=== PATIENT | male | born 1950 | race Caucasian/White ===

== ENCOUNTER 2020-09-24 10:05 | Outpatient (REF) | payer OTHER, SELFPAY ==
[2020-09-24 11:23] LABS: MANUAL DIFF FLAG NO
[2020-09-24 11:37] LABS: Basophils Percent Auto 0.2 % (0-2); Hematocrit 40.7 % (42-52); Hemoglobin 13.4 g/dl (14.0-18.0); Imm Gran Abs Auto 0.01 X10*3/uL (0.00-0.03); Imm Gran Pct Auto 0.2 % (0.0-0.4); Lymphocytes Absolute Auto 1.2 X10*3/uL (1.2-4.9); Lymphocytes Percent Auto 29.2 % (20-40); Mean Corpuscular HGB Conc 32.9 g/dl (31.0-36.0); Mean Corpuscular Hemoglobin 29.8 pg (27.0-33.0); Mean Corpuscular Volume 90.6 fL (80-98); Mean Platelet Volume 9.6 fL (9.4-12.4); Monocytes Absolute Auto 0.4 X10*3/uL (0.1-1.2); Monocytes Percent Auto 9.2 % (2-11); Neutrophils Absolute Auto 2.5 X10*3/uL (2.0-8.3); Neutrophils Percent Auto 60.2 % (45-73); Platelet Count 196 X10*3/uL (160-400); Red Blood Count 4.49 X10*6/uL (4.60-5.80); Red Cell Distribution Width 12.8 % (11.0-16.0); White Blood Count 4.1 X10*3/uL (4.8-10.8)
[2020-09-24 12:22] LABS: Alanine Aminotransferase 12 U/L (0-40); Albumin Level 4.1 g/dL (3.5-5.0); Alkaline Phosphatase 64 U/L (39-117); Anion Gap 12 (12-20); Aspartate Amino Transferase 19 U/L (5-37); Bilirubin Total 1.2 mg/dL (0.0-1.0); Blood Urea Nitrogen 17 mg/dL (9-16); Calcium 8.4 mg/dL (8.4-10.2); Carbon Dioxide 25 mmol/L (22-29); Chloride 111 mmol/L (96-108); Cholesterol 187 mg/dL; Estimated Glomerular Filt Rate 51; Glucose Fasting 79 mg/dL (60-99); HDL Cholesterol 59 mg/dL; LDL Cholesterol Calculated 115 mg/dl; Potassium 4.4 mmol/L (3.3-5.1); Sodium 144 mmol/L (135-145); Total Protein 6.5 g/dL (6.5-8.0); Triglycerides 67 mg/dL
== END 2020-09-24 10:06 | disposition home or self-care (01) ==
LOC: HO.LAB 10:05
PROVIDERS: PCP Internal Medicine; Visit Provider Internal Medicine
DX: Z00.00 Encounter for general adult medical examination without abnormal findings (principal); E11.9 Type 2 diabetes mellitus without complications
CPT/HCPCS: 36415; 80053; 80061; 85025

== ENCOUNTER 2020-09-30 11:15 | Outpatient (REF) | payer OTHER, SELFPAY ==
--- NOTE | ~2020-09-30 | XR_ITS ---
EXAMINATION: XR LUMBOSACRAL SPINE CLINICAL INFORMATION: Pain COMPARISON: Previous x-ray November 2006 TECHNIQUE: Three views of the lumbosacral spine. FINDINGS: Bone alignment is normal. No fracture or dislocation is seen. There is multilevel degenerative spondylosis. There is degenerative disc disease at L4-L5 and L5-S1. There is lower lumbar spine facet arthritis. XR/XR lumbar spine 2-3V IMPRESSION: Degenerative changes.
== END 2020-09-30 11:16 | disposition home or self-care (01) ==
LOC: HO.LAB 11:15
PROVIDERS: PCP Internal Medicine; Visit Provider Internal Medicine
DX: M54.9 Dorsalgia, unspecified (principal)
CPT/HCPCS: 72100

== ENCOUNTER 2021-04-04 11:03 | Outpatient (REF) | payer OTHER, SELFPAY ==
[2021-04-04 11:14] LABS: MANUAL DIFF FLAG NO
[2021-04-04 11:59] LABS: Basophils Percent Auto 0.4 % (0-2); Eosinophils Percent Auto 0.4 % (0-4); Hematocrit 40.6 % (42-52); Hemoglobin 13.8 g/dl (14.0-18.0); Imm Gran Abs Auto 0.01 X10*3/uL (0.00-0.03); Imm Gran Pct Auto 0.2 % (0.0-0.4); Lymphocytes Absolute Auto 1.3 X10*3/uL (1.2-4.9); Lymphocytes Percent Auto 23.2 % (20-40); Mean Corpuscular Hemoglobin 30.7 pg (27.0-33.0); Mean Corpuscular Volume 90.4 fL (80-98); Mean Platelet Volume 9.2 fL (9.4-12.4); Monocytes Absolute Auto 0.5 X10*3/uL (0.1-1.2); Monocytes Percent Auto 9.7 % (2-11); Neutrophils Absolute Auto 3.6 X10*3/uL (2.0-8.3); Neutrophils Percent Auto 66.1 % (45-73); Platelet Count 227 X10*3/uL (160-400); Red Blood Count 4.49 X10*6/uL (4.60-5.80); Red Cell Distribution Width 12.6 % (11.0-16.0); White Blood Count 5.4 X10*3/uL (4.8-10.8)
[2021-04-04 12:19] LABS: Appearance Urine CLEAR; Color Urine YELLOW; Glucose Urine UA NEG (NEG); Leukocyte Esterase Urine NEG (NEG); Nitrite Urine NEG (NEG); Specific Gravity - Urine >= 1.030 (1.005-1.025); Urine Blood NEG (NEG); Urine Ketones 5 MG/DL (NEG); Urine Protein TRACE MG/DL (NEG-TRACE)
[2021-04-04 12:28] LABS: Alanine Aminotransferase 9 U/L (0-40); Albumin Level 4.3 g/dL (3.5-5.0); Alkaline Phosphatase 63 U/L (39-117); Anion Gap 12 (12-20); Aspartate Amino Transferase 19 U/L (5-37); Blood Urea Nitrogen 16 mg/dL (9-16); Calcium 8.9 mg/dL (8.4-10.2); Carbon Dioxide 27 mmol/L (22-29); Chloride 107 mmol/L (96-108); Cholesterol 185 mg/dL; Estimated Glomerular Filt Rate 44; Glucose Fasting 86 mg/dL (60-99); HDL Cholesterol 62 mg/dL; LDL Cholesterol Calculated 113 mg/dl; Potassium 5.1 mmol/L (3.3-5.1); Sodium 141 mmol/L (135-145); Total Protein 6.7 g/dL (6.5-8.0); Triglycerides 52 mg/dL
[2021-04-04 12:52] LABS: Prostate Specific Antigen Scr 1.53 ng/mL (<0.05-4.0)
== END 2021-04-04 11:04 | disposition home or self-care (01) ==
LOC: HO.LAB 11:03
PROVIDERS: PCP Internal Medicine; Visit Provider Internal Medicine
DX: Z00.00 Encounter for general adult medical examination without abnormal findings (principal); Z12.5 Encounter for screening for malignant neoplasm of prostate; R35.1 Nocturia; E11.9 Type 2 diabetes mellitus without complications; N39.0 Urinary tract infection, site not specified
CPT/HCPCS: 36415; 80053; 80061; 81003; 84153; 85025

== ENCOUNTER 2021-11-07 11:43 | Outpatient (REF) | payer OTHER, SELFPAY ==
[2021-11-07 13:59] LABS: Prostate Specific Antigen Scr 1.37 ng/mL (<0.05-4.0)
== END 2021-11-07 11:44 | disposition home or self-care (01) ==
LOC: HO.LAB 11:43
PROVIDERS: PCP Internal Medicine; Visit Provider Internal Medicine
DX: Z12.5 Encounter for screening for malignant neoplasm of prostate (principal)
CPT/HCPCS: 36415; 84153

== ENCOUNTER 2023-02-09 10:30 | Outpatient (AMB) | payer OTHER, SELFPAY ==
[2023-02-09 10:32] VITALS: BP 120/90; PULSE 64; O2SAT 98; BMI 25.7
--- NOTE | 2023-02-09 10:32 | A.OFFPC_ITS ---
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 Accompanied by: Self / Same As Patient Allergies No Known Allergies Allergy (Verified 02/09/23 10:33) Medication List - Last Reconciled 02/09/23 by Foster Escobar MD lisinopril 20 mg PO DAILY omeprazole 40 mg PO QAM Tobacco use date assessed: 10/07/22 Fall risk assessment: No Falls in past year Last assessed Fall Risk: 02/09/23 Dental Screening Dental Screen Date: 02/09/23 Did you have a dental visit in the last 12 months?: Yes Did you have a dental problem in the last 6 months where you did not have access to dental care?: No Was dental information given to patient?: Patient has dentist HPI 4 month f/u HPI Details HTN on Rx; doing well; compliant [facility] Medical History Hypertension Surgical History History of cholecystectomy Family History Father Cancer Mother Past heart attack Social History Housing: House Alcohol intake: current Alcohol intake frequency: holidays/special occasions only Patient Tobacco Use Status: Former Tobacco user Tobacco use type: Cigarette e-Cigarette/Vaping Use: Never Used Second Hand Smoke Exposure: No service: No Current occupational status: employed Cognitive needs: No Hearing needs: No Vision needs: Yes (glasses) Questionnaire PHQ-9 Over the last 2 weeks, how often have you been bothered by any of the following problems? 1. Little interest or pleasure in doing things: not at all 2. Feeling down, depressed, or hopeless: not at all 3. Trouble falling or staying asleep, or sleeping too much: not at all 4. Feeling tired or having little energy: not at all 5. Poor appetite or overeating: not at all 6. Feeling bad about yourself - or that you are a failure or have let yourself or your family down: not at all 7. Trouble concentrating on things, such as reading the newspaper or watching television: not at all 8. Moving or speaking so slowly that other people could have noticed. Or the opposite - being so fidgety or restless that you have been moving around a lot more than usual: not at all 9. Thoughts that you would be better off or of hurting yourself in some way: not at all Total score: 0 Depression Screening Interpretation: Negative Source: Developed by Drs. Jonny Goldstein, Ines Baez, Aime Gay and colleagues, with an educational ariel from [employer]. Thrive Questionnaire Date Thrive assessed: 07/10/22 Currently or been in a relationship where the following occur: no concerns reported AUDIT C Alcohol Use Questionnaire (AUDIT-C) 1. How often do you have a drink containing alcohol?: Monthly or less 2. How many drinks containing alcohol do you have on a typical day when you are drinking?: 1 or 2 3. How often do you have six or more drinks on one occasion?: Never Total Score: 1 Score Reviewed/Action Taken: Yes ZAIDA-7 AMB Questionnaire ZAIDA-7 Date ZAIDA - 7 assessed: 02/09/23 Feeling nervous, anxious, or on edge: 0 = Not at all Not being able to stop or control worryin = Not at all Worrying too much about different things: 0 = Not at all Trouble relaxin = Not at all Being so restless that it is hard to sit still: 0 = Not at all Becoming easily annoyed or irritable: 0 = Not at all Feeling afraid as if something awful might happen: 0 = Not at all Total ZAIDA-7 score (0-4 normal; 5-9 mild; 10-14 moderate; 15-21 severe): 0 Source: Developed by Drs. Jonny Goldstein, Ines Baez, Aime Gay and colleagues, with an educational ariel from [employer]. Review of Systems Const Denies chills, Denies headache(s) and Denies weight loss ENT Denies headache(s) Card Denies chest pain, Denies syncope, Denies irregular heart rhythm and Denies dy spnea Resp Denies chest congestion, Denies cough and Denies dyspnea GI Denies abdominal pain, Denies change in stool character, Denies nausea and Guille es vomiting Musc Denies deformity and Denies joint swelling Neuro Denies syncope and Denies headache(s) Physical exam (Primary Care) Vital Signs: Last Vital Signs Pulse 64 02/09/23 10:32 BP 120/90 H 02/09/23 10:32 Pulse Ox 98 02/09/23 10:32 Oxygen Delivery Method Room Air 02/09/23 10:32 BMI result Body Mass Index 25.7 Tobacco/Smoking Status: Tobacco use Status Tobacco use date assessed 10/07/22 02/09/23 10:37 Patient Tobacco Use Status Former Tobacco user 02/09/23 10:37 Tobacco use type Cigarette 02/09/23 10:37 e-Cigarette/Vaping Use Never Used 02/09/23 10:37 PHQ-9: PHQ-9 Score PHQ-9: Total score 0 02/09/23 10:37 Depression Screening Interpretation: Negative Thrive Assessment: Date of Thrive Assessment Date Thrive assessed 07/10/22 02/09/23 10:37 Currently or been in a relationship where the following occur: no concerns reported Const General: cooperative, healthy appearing and comfortable Resp Auscultation: clear to auscultation bilaterally Cardio Jugular venous distension: no JVD Rate: regular rate Rhythm: regular rhythm GI Inspection: Yes normal to inspection Assessment and Plan Assessment & Plan (1) Hypertension: Code(s): I10 - Essential (primary) hypertension Plan: stable; same rx; do labs Coding Level of Care Code Est Pt Level 3 (61781) Diagnoses Hypertension I10 Additional Codes PHQ-9 - 27797 - PHQ-9 Billing: Y ([id number])
== END 2023-02-09 10:47 | disposition home or self-care (01) ==
PROVIDERS: PCP Internal Medicine; Visit Provider Internal Medicine
DX: I10 Essential (primary) hypertension (principal)
CPT/HCPCS: 99213

== ENCOUNTER 2023-04-07 09:00 | Outpatient (REF) | payer OTHER, SELFPAY ==
[2023-04-07 09:11] LABS: MANUAL DIFF FLAG NO
[2023-04-07 09:34] LABS: Basophils Percent Auto 0.7 % (0-2); Hematocrit 42.9 % (42.0-52.0); Hemoglobin 14.4 g/dl (14.0-18.0); Imm Gran Abs Auto 0.01 X10*3/uL (0.00-0.03); Imm Gran Pct Auto 0.2 % (0.0-0.4); Lymphocytes Absolute Auto 1.1 X10*3/uL (1.2-4.9); Lymphocytes Percent Auto 27.5 % (20-40); Mean Corpuscular HGB Conc 33.6 g/dl (31.0-36.0); Mean Corpuscular Hemoglobin 30.5 pg (27.0-33.0); Mean Corpuscular Volume 90.9 fL (80.0-98.0); Mean Platelet Volume 9.3 fL (9.4-12.4); Monocytes Absolute Auto 0.4 X10*3/uL (0.1-1.2); Monocytes Percent Auto 9.2 % (2-11); Neutrophils Absolute Auto 2.5 x10*3/uL (2.0-8.3); Neutrophils Percent Auto 61.4 % (45-73); Platelet Count 212 X10*3/uL (160-400); Red Blood Count 4.72 X10*6/uL (4.60-5.80); Red Cell Distribution Width 12.9 % (11.0-16.0)
[2023-04-07 10:50] LABS: Alanine Aminotransferase 9 U/L (0-40); Albumin Level 4.2 g/dL (3.5-5.0); Alkaline Phosphatase 66 U/L (39-117); Anion Gap 13 (12-20); Aspartate Amino Transferase 19 U/L (5-37); Bilirubin Total 1.1 mg/dL (0.0-1.0); Blood Urea Nitrogen 16 mg/dL (9-16); Calcium 9.1 mg/dL (8.4-10.2); Carbon Dioxide 26 mmol/L (22-29); Chloride 108 mmol/L (96-108); Cholesterol 183 mg/dL (<200); Estimated Glomerular Filt Rate 48; Glucose Fasting 89 mg/dL (60-99); HDL Cholesterol 60 mg/dL (>40); LDL Cholesterol Calculated 110 mg/dL (<100); Potassium 4.4 mmol/L (3.3-5.1); Sodium 143 mmol/L (135-145); Total Protein 6.9 g/dL (6.5-8.0); Triglycerides 68 mg/dL (<150)
== END 2023-04-07 09:01 | disposition home or self-care (01) ==
LOC: HO.LAB 09:00
PROVIDERS: PCP Internal Medicine; Visit Provider Internal Medicine
DX: Z13.0 Encounter for screening for diseases of the blood and blood-forming organs and certain disorders involving the immune mechanism (principal); E78.5 Hyperlipidemia, unspecified; I10 Essential (primary) hypertension
CPT/HCPCS: 36415; 80053; 80061; 85025

== ENCOUNTER 2023-04-09 09:44 | Outpatient (AMB) | payer OTHER, SELFPAY ==
[2023-04-09 09:53] VITALS: BP 146/82; PULSE 75; O2SAT 98; BMI 26.3
--- NOTE | 2023-04-09 09:53 | MHC.PC.OV ---
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 Accompanied by: Self / Same As Patient Allergies No Known Allergies Allergy (Verified 04/09/23 09:53) Medication List - Last Reconciled 04/09/23 by Foster Escobar MD lisinopril 20 mg PO DAILY omeprazole 40 mg PO QAM Tobacco use date assessed: 10/07/22 Fall risk assessment: No Falls in past year Last assessed Fall Risk: 04/09/23 Dental Screening Dental Screen Date: 04/09/23 Did you have a dental visit in the last 12 months?: Yes Did you have a dental problem in the last 6 months where you did not have access to dental care?: No Was dental information given to patient?: Patient has dentist HPI Annual exam HPI Details HTN and gerd on rx; doing well PFSH Medical History Hypertension Surgical History History of cholecystectomy Family History Father Cancer Mother Past heart attack Social History Housing: House Alcohol intake: current Alcohol intake frequency: holidays/special occasions only Patient Tobacco Use Status: Former Tobacco user Tobacco use type: Cigarette e-Cigarette/Vaping Use: Never Used Second Hand Smoke Exposure: No service: No Current occupational status: employed Cognitive needs: No Hearing needs: No Vision needs: Yes (glasses) Questionnaire PHQ-9 Over the last 2 weeks, how often have you been bothered by any of the following problems? 1. Little interest or pleasure in doing things: not at all 2. Feeling down, depressed, or hopeless: not at all 3. Trouble falling or staying asleep, or sleeping too much: not at all 4. Feeling tired or having little energy: not at all 5. Poor appetite or overeating: not at all 6. Feeling bad about yourself - or that you are a failure or have let yourself or your family down: not at all 7. Trouble concentrating on things, such as reading the newspaper or watching television: not at all 8. Moving or speaking so slowly that other people could have noticed. Or the opposite - being so fidgety or restless that you have been moving around a lot more than usual: not at all 9. Thoughts that you would be better off or of hurting yourself in some way: not at all Total score: 0 Depression Screening Interpretation: Negative Depression Screening Done: Yes 16200 - PHQ-9 Billing: Yes Source: Developed by Drs. Jonny Goldstein, Ines Baez, Aime Gay and colleagues, with an educational ariel from [employer]. Thrive Questionnaire Date Thrive assessed: 07/10/22 AUDIT C Alcohol Use Questionnaire (AUDIT-C) 1. How often do you have a drink containing alcohol?: Monthly or less 2. How many drinks containing alcohol do you have on a typical day when you are drinking?: 1 or 2 3. How often do you have six or more drinks on one occasion?: Never Total Score: 1 Score Reviewed/Action Taken: Yes ZAIDA-7 AMB Questionnaire ZAIDA-7 Date ZAIDA - 7 assessed: 02/09/23 Source: Developed by Drs. Jonny Goldstein, Ines Baez, Aime Gay and colleagues, with an educational ariel from [employer]. Review of Systems Const Denies chills, Denies fatigue, Denies headache(s) and Denies weight loss Eyes Denies change in vision, Denies diplopia and Denies eye pain ENT Denies vertigo, Denies dizziness, Denies headache(s) and Denies nasal discharge Card Denies chest pain, Denies rapid heart rate and Denies dyspnea on exertion Resp Denies chest congestion, Denies cough, Denies pain with cough and Denies dyspnea on exertion GI Denies abdominal pain, Denies hematochezia and Denies change in bowel habits Musc Denies myalgias, Denies arthralgias and Denies joint swelling Skin/Breast Denies lesions and Denies unusual bruising Neuro Denies vertigo, Denies dizziness, Denies headache(s) and Denies focal weakness Endo Denies fatigue Physical exam (Primary Care) Vital Signs: Last Vital Signs Pulse 75 04/09/23 09:53 BP 146/82 H 04/09/23 09:53 Pulse Ox 98 04/09/23 09:53 Oxygen Delivery Method Room Air 04/09/23 09:53 BMI result Body Mass Index 26.3 Tobacco/Smoking Status: Tobacco use Status Tobacco use date assessed 10/07/22 04/09/23 09:54 Patient Tobacco Use Status Former Tobacco user 04/09/23 09:54 Tobacco use type Cigarette 04/09/23 09:54 e-Cigarette/Vaping Use Never Used 04/09/23 09:54 PHQ-9: PHQ-9 Score PHQ-9: Total score 0 04/09/23 09:54 Depression Screening Interpretation: Negative Thrive Assessment: Date of Thrive Assessment Date Thrive assessed 07/10/22 04/09/23 09:54 Const General: cooperative, healthy appearing and no acute distress Orientation/consciousness: oriented to person, oriented to place and oriented to time HENMT Head: Yes normal to inspection, Yes normocephalic and Yes atraumatic Mouth: Normal oral and palatal mucosa present and tongue normal Throat: Yes posterior oropharynx normal and Yes uvula midline Eyes General: appearance normal, both eyes and all related structures Neck Neck: Yes normal visual inspection, Yes full ROM and Yes no lymphadenopathy Thyroid: Thyroid normal Carotids: normal carotid upstroke Chest Chest palpation & inspection: normal inspection of the chest Resp Effort & Inspection: normal respiratory effort and able to speak in complete sentences Auscultation: clear to auscultation bilaterally Cardio Jugular venous distension: no JVD Palpation: normal PMI Rate: regular rate Rhythm: regular rhythm Heart sounds: S1 normal heart sound present and S2 normal heart sound present GI Inspection: Yes normal to inspection Palpation (GI): Soft to palpation and No hepatosplenomegaly present Auscultation: normal bowel sounds General: Yes no CVA tenderness Back/Spine/Pelvis Back: no CVA tenderness Skin General skin exam: no rashes or lesions noted Neuro General: oriented to person, oriented to place and oriented to time Extrem General: Yes normal to inspection and Yes full ROM Assessment and Plan Assessment & Plan (1) Physical exam: Code(s): Z00.00 - Encounter for general adult medical examination without abnormal findings Plan: do labs (2) Hypertension: Code(s): I10 - Essential (primary) hypertension Plan: stable; same rx (3) Chronic GERD: Code(s): K21.9 - Gastro-esophageal reflux disease without esophagitis Plan: stable; same rx Coding Level of Care Code Est Pt Prev Care >65y(96701) Diagnoses Physical exam Z00.00 Hypertension I10 Chronic GERD K21.9
== END 2023-04-09 10:21 | disposition home or self-care (01) ==
PROVIDERS: Visit Provider Internal Medicine
DX: Z00.00 Encounter for general adult medical examination without abnormal findings (principal); I10 Essential (primary) hypertension; K21.9 Gastro-esophageal reflux disease without esophagitis
CPT/HCPCS: 99397

== ENCOUNTER 2023-07-27 11:01 | Outpatient (AMB) | payer OTHER, SELFPAY ==
[2023-07-27 11:12] VITALS: BP 134/76; PULSE 67; O2SAT 97; BMI 27.2
--- NOTE | 2023-07-27 11:12 | A.OFFPC_ITS ---
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 Accompanied by: Self / Same As Patient Allergies No Known Allergies Allergy (Verified 07/27/23 11:13) Medication List - Last Reconciled 07/27/23 by Foster Escobar MD lisinopril 20 mg PO DAILY omeprazole 40 mg PO QAM Tobacco use date assessed: 07/27/23 Fall risk assessment: No Falls in past year Last assessed Fall Risk: 07/27/23 Dental Screening Dental Screen Date: 07/27/23 Did you have a dental visit in the last 12 months?: Yes Did you have a dental problem in the last 6 months where you did not have access to dental care?: No Was dental information given to patient?: Patient has dentist HPI 3 mth follow up Medication HPI Details HTN on Rx; doing well and compliant [facility] Medical History Hypertension Surgical History History of cholecystectomy Family History Father Cancer Mother Past heart attack Social History Housing: House Alcohol intake: current Alcohol intake frequency: holidays/special occasions only Patient Tobacco Use Status: Former Tobacco user Tobacco use type: Cigarette e-Cigarette/Vaping Use: Never Used Second Hand Smoke Exposure: No service: No Current occupational status: employed Cognitive needs: No Hearing needs: No Vision needs: Yes (glasses) Questionnaire PHQ-9 Over the last 2 weeks, how often have you been bothered by any of the following problems? 1. Little interest or pleasure in doing things: not at all 2. Feeling down, depressed, or hopeless: not at all 3. Trouble falling or staying asleep, or sleeping too much: not at all 4. Feeling tired or having little energy: not at all 5. Poor appetite or overeating: not at all 6. Feeling bad about yourself - or that you are a failure or have let yourself or your family down: not at all 7. Trouble concentrating on things, such as reading the newspaper or watching television: not at all 8. Moving or speaking so slowly that other people could have noticed. Or the opposite - being so fidgety or restless that you have been moving around a lot more than usual: not at all 9. Thoughts that you would be better off or of hurting yourself in some way: not at all Total score: 0 Depression Screening Interpretation: Negative Depression Screening Done: Yes 19824 - PHQ-9 Billing: Yes Source: Developed by Drs. Jonny Goldstein, Ines Baez, Aime Gay and colleagues, with an educational ariel from [employer]. Thrive Questionnaire Date Thrive assessed: 07/27/23 I am a: Patient What is your living situation today?: I have a steady place to live Within the past 12 months, did the food you bought not last and you didn't have the money to get more?: Never true Within the past 12 months, did you worry whether your food would run out before you got money to buy more?: Never true Do you have trouble paying for medicines?: No Do you have trouble getting transportation to medical appointments?: No Do you have trouble paying your heating and electricity bill?: No Do you have trouble taking care of your child, family member or friend?: No Do you have trouble with day-to-day activities such as bathing, preparing meals, shopping, managing finances, etc.?: No Are you currently unemployed and looking for a job?: No Are you interested in more education?: No Please select the resources that you would like help with: None THRIVE Score: 0 AUDIT C Alcohol Use Questionnaire (AUDIT-C) 1. How often do you have a drink containing alcohol?: Monthly or less 2. How many drinks containing alcohol do you have on a typical day when you are drinking?: 1 or 2 3. How often do you have six or more drinks on one occasion?: Never Total Score: 1 Score Reviewed/Action Taken: Yes ZAIDA-7 AMB Questionnaire ZAIDA-7 Date ZAIDA - 7 assessed: 07/27/23 Feeling nervous, anxious, or on edge: 0 = Not at all Not being able to stop or control worryin = Not at all Worrying too much about different things: 0 = Not at all Trouble relaxin = Not at all Being so restless that it is hard to sit still: 0 = Not at all Becoming easily annoyed or irritable: 0 = Not at all Feeling afraid as if something awful might happen: 0 = Not at all Total ZAIDA-7 score (0-4 normal; 5-9 mild; 10-14 moderate; 15-21 severe): 0 Source: Developed by Drs. Jonny Goldstein, Ines Baez, Aime Gay and colleagues, with an educational ariel from [employer]. ZAIDA-7 Assessment Billing ZAIDA-7 Assessment Tool: ZAIDA-7 Assessment 21319 Review of Systems Const Denies chills, Denies headache(s) and Denies weight loss ENT Denies headache(s) Card Denies chest pain, Denies syncope, Denies irregular heart rhythm and Denies dyspnea Resp Denies chest congestion, Denies cough and Denies dyspnea GI Denies abdominal pain, Denies change in stool character, Denies nausea and Denies vomiting Musc Denies deformity and Denies joint swelling Neuro Denies syncope and Denies headache(s) Physical exam (Primary Care) Vital Signs: Last Vital Signs Pulse 67 07/27/23 11:12 BP 134/76 07/27/23 11:12 Pulse Ox 97 07/27/23 11:12 Oxygen Delivery Method Room Air 07/27/23 11:12 BMI result Body Mass Index 27.2 Tobacco/Smoking Status: Tobacco use Status Tobacco use date assessed 07/27/23 07/27/23 11:14 Patient Tobacco Use Status Former Tobacco user 07/27/23 11:14 Tobacco use type Cigarette 07/27/23 11:14 e-Cigarette/Vaping Use Never Used 07/27/23 11:14 PHQ-9: PHQ-9 Score PHQ-9: Total score 0 07/27/23 11:14 Depression Screening Interpretation: Negative Thrive Assessment: Date of Thrive Assessment Date Thrive assessed 07/27/23 07/27/23 11:14 Const General: cooperative, comfortable, no acute distress and alert Neck Neck: Yes no lymphadenopathy Thyroid: Thyroid normal Resp Effort & Inspection: normal respiratory effort Auscultation: clear to auscultation bilaterally Percussion: percussion normal Cardio Jugular venous distension: no JVD Palpation: normal PMI Rate: regular rate Rhythm: regular rhythm Heart sounds: S1 normal heart sound present and S2 normal heart sound present GI Inspection: Yes normal to inspection Palpation (GI): No hepatosplenomegaly present Skin General skin exam: no rashes or lesions noted Extrem General: Yes no clubbing, cyanosis or edema Assessment and Plan Assessment & Plan (1) Hypertension: Code(s): I10 - Essential (primary) hypertension Plan: stable; same rx Coding Level of Care Code Est Pt Level 3 (76647) Diagnoses Hypertension I10 Additional Codes ZAIDA-7 Assessment Billing - ZAIDA-7 Assessment Tool: ZAIDA-7 Assessment [id number] ([id number])
== END 2023-07-27 11:25 | disposition home or self-care (01) ==
PROVIDERS: PCP Internal Medicine; Visit Provider Internal Medicine
DX: I10 Essential (primary) hypertension (principal)
CPT/HCPCS: 99213

== ENCOUNTER 2023-10-27 10:29 | Outpatient (AMB) | payer OTHER, SELFPAY ==
[2023-10-27 10:32] VITALS: BP 110/58; PULSE 83; O2SAT 98; BMI 25.4
--- NOTE | 2023-10-27 10:32 | MHC.PC.OV ---
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: Not Required per policy Accompanied by: Self / Same As Patient Allergies No Known Allergies Allergy (Verified 10/27/23 10:33) Medication List - Last Reconciled 10/27/23 by Foster Escobar MD lisinopril 20 mg PO DAILY omeprazole 40 mg PO QAM Tobacco use date assessed: 07/27/23 Fall risk assessment: No Falls in past year Last assessed Fall Risk: 10/27/23 Dental Screening Dental Screen Date: 07/27/23 HPI 3mth f/u HPI Details HTN on Rx; doing well and compliant [facility] Medical History Hypertension Surgical History History of cholecystectomy Family History Father Cancer Mother Past heart attack Social History Housing: House Alcohol intake: current Alcohol intake frequency: holidays/special occasions only Patient Tobacco Use Status: Former Tobacco user Tobacco use type: Cigarette e-Cigarette/Vaping Use: Never Used Second Hand Smoke Exposure: No service: No Current occupational status: employed Cognitive needs: No Hearing needs: No Vision needs: Yes (glasses) Questionnaire Thrive Questionnaire Date Thrive assessed: 07/27/23 ZAIDA-7 AMB Questionnaire ZAIDA-7 Date ZAIDA - 7 assessed: 07/27/23 Source: Developed by Drs. Jonny Goldstein, Ines Baez, Aime Gay and colleagues, with an educational ariel from [employer]. Review of Systems Const Denies chills, Denies headache(s) and Denies weight loss ENT Denies headache(s) Card Denies chest pain, Denies syncope, Denies irregular heart rhythm and Denies dyspnea Resp Denies chest congestion, Denies cough and Denies dyspnea GI Denies abdominal pain, Denies change in stool character, Denies nausea and Denies vomiting Musc Denies deformity and Denies joint swelling Neuro Denies syncope and Denies headache(s) Physical exam (Primary Care) Vital Signs: Last Vital Signs Pulse 83 10/27/23 10:32 BP 110/58 L 10/27/23 10:32 Pulse Ox 98 10/27/23 10:32 Oxygen Delivery Method Room Air 10/27/23 10:32 BMI result Body Mass Index 25.4 Tobacco/Smoking Status: Tobacco use Status Tobacco use date assessed 07/27/23 10/27/23 10:33 Patient Tobacco Use Status Former Tobacco user 10/27/23 10:33 Tobacco use type Cigarette 10/27/23 10:33 e-Cigarette/Vaping Use Never Used 10/27/23 10:33 Thrive Assessment: Date of Thrive Assessment Date Thrive assessed 07/27/23 10/27/23 10:33 Const General: cooperative, comfortable, no acute distress and alert Neck Neck: Yes no lymphadenopathy Thyroid: Thyroid normal Resp Effort & Inspection: normal respiratory effort Auscultation: clear to auscultation bilaterally Percussion: percussion normal Cardio Jugular venous distension: no JVD Palpation: normal PMI Rate: regular rate Rhythm: regular rhythm Heart sounds: S1 normal heart sound present and S2 normal heart sound present GI Inspection: Yes normal to inspection Palpation (GI): No hepatosplenomegaly present Skin General skin exam: no rashes or lesions noted Extrem General: Yes no clubbing, cyanosis or edema Assessment and Plan Assessment & Plan (1) Hypertension: Code(s): I10 - Essential (primary) hypertension Plan: stable; same rx Coding Level of Care Code Est Pt Level 3 (32419) Diagnoses Hypertension I10
== END 2023-10-27 10:50 | disposition home or self-care (01) ==
PROVIDERS: PCP Internal Medicine; Visit Provider Internal Medicine
DX: I10 Essential (primary) hypertension (principal)
CPT/HCPCS: 99213

== ENCOUNTER 2024-02-16 10:48 | Outpatient (AMB) | payer OTHER, SELFPAY ==
[2024-02-16 10:51] VITALS: BP 132/90; PULSE 65; O2SAT 98; BMI 25.4
--- NOTE | 2024-02-16 10:51 | A.OFFPC_ITS ---
Vital Signs 02/16/24 10:51 Height 5 ft 7 in Weight 162 lb BMI 25.4 BP 132/90 H Blood Pressure Location Lt brachial Position Sitting Pulse 65 Pulse Source Pulse Oximeter Pulse Oximetry (%) 98 Oxygen Delivery Method Room Air Intake Visit Reasons: 3mnth med f/u Savings Teller Required: No Accompanied by: Self / Same As Patient Allergies No Known Allergies Allergy (Verified 02/16/24 10:51) Medication List - Last Reconciled 02/16/24 by Foster Escobar MD lisinopril 20 mg PO DAILY omeprazole 40 mg PO QAM Tobacco use date assessed: 07/27/23 Fall risk assessment: No Falls in past year Last assessed Fall Risk: 02/16/24 Dental Screening Dental Screen Date: 07/27/23 HPI 3mnth med f/u HPI Details hypertension on rx; doing well PFSH Medical History Hypertension Surgical History History of cholecystectomy Family History Father Cancer Mother Past heart attack Social History Housing: House Alcohol intake: current Alcohol intake frequency: holidays/special occasions only Patient Tobacco Use Status: Former Tobacco user Tobacco use type: Cigarette e-Cigarette/Vaping Use: Never Used Second Hand Smoke Exposure: No service: No Current occupational status: employed Cognitive needs: No Hearing needs: No Vision needs: Yes (glasses) Questionnaire PHQ-9 Over the last 2 weeks, how often have you been bothered by any of the following problems? 1. Little interest or pleasure in doing things: not at all 2. Feeling down, depressed, or hopeless: not at all 3. Trouble falling or staying asleep, or sleeping too much: not at all 4. Feeling tired or having little energy: not at all 5. Poor appetite or overeating: not at all 6. Feeling bad about yourself - or that you are a failure or have let yourself or your family down: not at all 7. Trouble concentrating on things, such as reading the newspaper or watching television: not at all 8. Moving or speaking so slowly that other people could have noticed. Or the opposite - being so fidgety or restless that you have been moving around a lot more than usual: not at all 9. Thoughts that you would be better off or of hurting yourself in some way: not at all Total score: 0 Depression Screening Interpretation: Negative Depression Screening Done: Yes 93162 - PHQ-9 Billing: Yes Source: Developed by Drs. Jonny Goldstein, Ines Baez, Aime Gay and colleagues, with an educational ariel from [employer]. Thrive Questionnaire Date Thrive assessed: 07/27/23 AUDIT C Alcohol Use Questionnaire (AUDIT-C) 1. How often do you have a drink containing alcohol?: Monthly or less 2. How many drinks containing alcohol do you have on a typical day when you are drinking?: 1 or 2 3. How often do you have six or more drinks on one occasion?: Never Total Score: 1 Score Reviewed/Action Taken: Yes ZAIDA-7 AMB Questionnaire ZAIDA-7 Date ZAIDA - 7 assessed: 07/27/23 Source: Developed by Drs. Jonny Goldstein, Aime Figueroa and colleagues, with an educational ariel from [employer]. Review of Systems Const Denies chills, Denies headache(s) and Denies weight loss ENT Denies headache(s) Card Denies chest pain, Denies syncope, Denies irregular heart rhythm and Denies dyspnea Resp Denies chest congestion, Denies cough and Denies dyspnea GI Denies abdominal pain, Denies change in stool character, Denies nausea and Denies vomiting Musc Denies deformity and Denies joint swelling Neuro Denies syncope and Denies headache(s) Physical exam (Primary Care) Vital Signs: Last Vital Signs Pulse 65 02/16/24 10:51 BP 132/90 H 02/16/24 10:51 Pulse Ox 98 02/16/24 10:51 Oxygen Delivery Method Room Air 02/16/24 10:51 BMI result Body Mass Index 25.4 Tobacco/Smoking Status: Tobacco use Status Tobacco use date assessed 07/27/23 02/16/24 10:56 Patient Tobacco Use Status Former Tobacco user 02/16/24 10:56 Tobacco use type Cigarette 02/16/24 10:56 e-Cigarette/Vaping Use Never Used 02/16/24 10:56 PHQ-9: PHQ-9 Score PHQ-9: Total score 0 02/16/24 10:56 Depression Screening Interpretation: Negative Thrive Assessment: Date of Thrive Assessment Date Thrive assessed 07/27/23 02/16/24 10:56 Const General: cooperative, comfortable, no acute distress and alert Neck Neck: Yes no lymphadenopathy Thyroid: Thyroid normal Resp Effort & Inspection: normal respiratory effort Auscultation: clear to auscultation bilaterally Percussion: percussion normal Cardio Jugular venous distension: no JVD Palpation: normal PMI Rate: regular rate Rhythm: regular rhythm Heart sounds: S1 normal heart sound present and S2 normal heart sound present GI Inspection: Yes normal to inspection Palpation (GI): No hepatosplenomegaly present Skin General skin exam: no rashes or lesions noted Extrem General: Yes no clubbing, cyanosis or edema Assessment and Plan Assessment & Plan (1) Hypertension: Code(s): I10 - Essential (primary) hypertension Plan: stable; same rx Coding Level of Care Code Est Pt Level 3 (79564) Diagnoses Hypertension I10
== END 2024-02-16 11:03 | disposition home or self-care (01) ==
PROVIDERS: PCP Internal Medicine; Visit Provider Internal Medicine
DX: I10 Essential (primary) hypertension (principal)
CPT/HCPCS: 99213

== ENCOUNTER 2024-05-17 10:19 | Outpatient (AMB) | payer OTHER, SELFPAY ==
[2024-05-17 10:22] VITALS: BP 130/78; PULSE 61; O2SAT 97; BMI 25.4
--- NOTE | 2024-05-17 10:22 | A.OFFPC_ITS ---
Vital Signs 05/17/24 10:22 Height 5 ft 7 in Weight 162 lb BMI 25.4 BP 130/78 Blood Pressure Location Lt brachial Position Sitting Pulse 61 Pulse Source Pulse Oximeter Pulse Oximetry (%) 97 Oxygen Delivery Method Room Air Intake Visit Reasons: 3 Month F/U Allergies No Known Allergies Allergy (Verified 05/17/24 10:22) Medication List - Last Reconciled 05/17/24 by Foster Escobar MD lisinopril 20 mg PO DAILY omeprazole 40 mg PO QAM Tobacco use date assessed: 07/27/23 Fall risk assessment: No Falls in past year Last assessed Fall Risk: 05/17/24 Dental Screening Dental Screen Date: 07/27/23 HPI 3 Month F/U HPI Details HTN on rx; doing well and compliant [facility] Medical History Hypertension Surgical History History of cholecystectomy Family History Father Cancer Mother Past heart attack Social History Housing: House Alcohol intake: current Alcohol intake frequency: holidays/special occasions only Patient Tobacco Use Status: Former Tobacco user Tobacco use type: Cigarette e-Cigarette/Vaping Use: Never Used Second Hand Smoke Exposure: No service: No Current occupational status: employed Cognitive needs: No Hearing needs: No Vision needs: Yes (glasses) Questionnaire PHQ-9 Over the last 2 weeks, how often have you been bothered by any of the following problems? 1. Little interest or pleasure in doing things: not at all 2. Feeling down, depressed, or hopeless: not at all 3. Trouble falling or staying asleep, or sleeping too much: not at all 4. Feeling tired or having little energy: not at all 5. Poor appetite or overeating: not at all 6. Feeling bad about yourself - or that you are a failure or have let yourself or your family down: not at all 7. Trouble concentrating on things, such as reading the newspaper or watching television: not at all 8. Moving or speaking so slowly that other people could have noticed. Or the opposite - being so fidgety or restless that you have been moving around a lot more than usual: not at all 9. Thoughts that you would be better off or of hurting yourself in some way: not at all Total score: 0 Depression Screening Interpretation: Negative Depression Screening Done: Yes 70930 - PHQ-9 Billing: Yes Source: Developed by Drs. Jonny Goldstein, Ines Baez, Aime Gay and colleagues, with an educational ariel from [employer]. Thrive Questionnaire Date Thrive assessed: 07/27/23 AUDIT C Alcohol Use Questionnaire (AUDIT-C) 1. How often do you have a drink containing alcohol?: Monthly or less 2. How many drinks containing alcohol do you have on a typical day when you are drinking?: 1 or 2 3. How often do you have six or more drinks on one occasion?: Never Total Score: 1 Score Reviewed/Action Taken: Yes ZAIDA-7 AMB Questionnaire ZAIDA-7 Date ZAIDA - 7 assessed: 07/27/23 Source: Developed by Drs. Jonny Goldstein, Ines Baez, Aime Gay and colleagues, with an educational ariel from [employer]. Review of Systems Const Denies chills, Denies headache(s) and Denies weight loss ENT Denies headache(s) Card Denies chest pain, Denies syncope, Denies irregular heart rhythm and Denies dyspnea Resp Denies chest congestion, Denies cough and Denies dyspnea GI Denies abdominal pain, Denies change in stool character, Denies nausea and Denies vomiting Musc Denies deformity and Denies joint swelling Neuro Denies syncope and Denies headache(s) Physical exam (Primary Care) Vital Signs: Last Vital Signs Pulse 61 05/17/24 10:22 BP 130/78 05/17/24 10:22 Pulse Ox 97 05/17/24 10:22 Oxygen Delivery Method Room Air 05/17/24 10:22 BMI result Body Mass Index 25.4 Tobacco/Smoking Status: Tobacco use Status Tobacco use date assessed 07/27/23 05/17/24 10:27 Patient Tobacco Use Status Former Tobacco user 05/17/24 10:27 Tobacco use type Cigarette 05/17/24 10:27 e-Cigarette/Vaping Use Never Used 05/17/24 10:27 PHQ-9: PHQ-9 Score PHQ-9: Total score 0 05/17/24 10:27 Depression Screening Interpretation: Negative Thrive Assessment: Date of Thrive Assessment Date Thrive assessed 07/27/23 05/17/24 10:27 Const General: cooperative, comfortable, no acute distress and alert Neck Neck: Yes no lymphadenopathy Thyroid: Thyroid normal Resp Effort & Inspection: normal respiratory effort Auscultation: clear to auscultation bilaterally Percussion: percussion normal Cardio Jugular venous distension: no JVD Palpation: normal PMI Rate: regular rate Rhythm: regular rhythm Heart sounds: S1 normal heart sound present and S2 normal heart sound present GI Inspection: Yes normal to inspection Palpation (GI): No hepatosplenomegaly present Skin General skin exam: no rashes or lesions noted Extrem General: Yes no clubbing, cyanosis or edema Coding Level of Care Code Est Pt Level 3 (31783) Diagnoses Hypertension I10 Additional Codes PHQ-9 - 54655 - PHQ-9 Billing: Yes ([id number]) Assessment & Plan Assessment & Plan (1) Hypertension: Code(s): I10 - Essential (primary) hypertension Category: Medical Plan: stable; same rx; do labs Orders: Orders Lipid Panel Today Z13.220 - Encounter for screening for lipoid disorders Complete Blood Count Auto Diff Today Z13.0 - Encounter for screening for diseases of the blood and blood-forming organs and certain disorders involving the immune mechanism Comprehensive [place]. Panel Fast Today Z13.9 - Encounter for screening, unspecified
== END 2024-05-17 10:38 | disposition home or self-care (01) ==
PROVIDERS: PCP Internal Medicine; Visit Provider Internal Medicine
DX: I10 Essential (primary) hypertension (principal)

== ENCOUNTER → 2024-05-17 10:19 | Outpatient (BNVA) | payer OTHER, SELFPAY | PROVIDERS: PCP Internal Medicine; Visit Provider Internal Medicine | DX: I10 Essential (primary) hypertension (principal) | CPT/HCPCS: 96127 ==

== ENCOUNTER 2024-08-15 10:18 | Outpatient (AMB) | payer OTHER, SELFPAY ==
--- NOTE | 2024-08-15 10:27 | MHC.PC.OV ---
Vital Signs 08/15/24 10:28 Height 5 ft 7 in Weight 170 lb 4 oz BMI 26.7 BP 124/68 Blood Pressure Location Lt brachial Position Sitting Pulse 72 Pulse Source Pulse Oximeter Temp 97.3 F Temp Source Temporal Artery Scan Pulse Oximetry (%) 97 Oxygen Delivery Method Room Air Intake Visit Reasons: 3 month f/u Intake Note: Patient is here to follow up on HTN. [employer] Chemist Required: No House Worker: Not Required per policy Accompanied by: Self / Same As Patient Allergies No Known Allergies Allergy (Verified 08/15/24 10:28) Medication List - Last Reconciled 08/15/24 by Foster Escobar MD lisinopril 20 mg PO DAILY omeprazole 40 mg PO QAM Tobacco use date assessed: 08/15/24 Fall risk assessment: No Falls in past year Last assessed Fall Risk: 08/15/24 Dental Screening Dental Screen Date: 08/15/24 Did you have a dental visit in the last 12 months?: No Did you have a dental problem in the last 6 months where you did not have access to dental care?: No Was dental information given to patient?: Patient has dentist HPI 3 month f/u HPI Details HTN on Rx; doing well and compliant [facility] Medical History Hypertension Surgical History History of cholecystectomy Family History Father Cancer Mother Past heart attack Social History Housing: House Alcohol intake: current Alcohol intake frequency: holidays/special occasions only Patient Tobacco Use Status: Former Tobacco user Tobacco use type: Cigarette e-Cigarette/Vaping Use: Never Used Second Hand Smoke Exposure: Yes service: No Current occupational status: employed Cognitive needs: No Hearing needs: No Vision needs: Yes (glasses) Questionnaire PHQ-9 Over the last 2 weeks, how often have you been bothered by any of the following problems? 1. Little interest or pleasure in doing things: not at all 2. Feeling down, depressed, or hopeless: not at all 3. Trouble falling or staying asleep, or sleeping too much: not at all 4. Feeling tired or having little energy: not at all 5. Poor appetite or overeating: not at all 6. Feeling bad about yourself - or that you are a failure or have let yourself or your family down: not at all 7. Trouble concentrating on things, such as reading the newspaper or watching television: not at all 8. Moving or speaking so slowly that other people could have noticed. Or the opposite - being so fidgety or restless that you have been moving around a lot more than usual: not at all 9. Thoughts that you would be better off or of hurting yourself in some way: not at all Total score: 0 Depression Screening Interpretation: Negative Depression Screening Done: Yes Source: Developed by Drs. Jonny Goldstein, Ines Baez, Aime Gay and colleagues, with an educational ariel from [employer]. Thrive Questionnaire Date Thrive assessed: 08/15/24 I am a: Patient What is your living situation today?: I have a steady place to live Within the past 12 months, did the food you bought not last and you didn't have the money to get more?: Never true Within the past 12 months, did you worry whether your food would run out before you got money to buy more?: Never true Do you have trouble paying for medicines?: No Do you have trouble getting transportation to medical appointments?: No Do you have trouble paying your heating and electricity bill?: No Do you have trouble taking care of your child, family member or friend?: No Do you have trouble with day-to-day activities such as bathing, preparing meals, shopping, managing finances, etc.?: No Are you currently unemployed and looking for a job?: No Are you interested in more education?: No Please select the resources that you would like help with: None Currently or been in a relationship where the following occur: No concerns reported THRIVE Score: 0 AUDIT C Alcohol Use Questionnaire (AUDIT-C) 1. How often do you have a drink containing alcohol?: Monthly or less 2. How many drinks containing alcohol do you have on a typical day when you are drinking?: 1 or 2 3. How often do you have six or more drinks on one occasion?: Never Total Score: 1 ZAIDA-7 AMB Questionnaire ZAIDA-7 Date ZAIDA - 7 assessed: 08/15/24 Feeling nervous, anxious, or on edge: 0 = Not at all Not being able to stop or control worryin = Not at all Worrying too much about different things: 0 = Not at all Trouble relaxin = Not at all Being so restless that it is hard to sit still: 0 = Not at all Becoming easily annoyed or irritable: 0 = Not at all Feeling afraid as if something awful might happen: 0 = Not at all Total ZAIDA-7 score (0-4 normal; 5-9 mild; 10-14 moderate; 15-21 severe): 0 Source: Developed by Drs. Jonny Goldstein, Ines Baez, Aime Gay and colleagues, with an educational ariel from [employer]. Review of Systems Const Denies chills, Denies headache(s) and Denies weight loss ENT Denies headache(s) Card Denies chest pain, Denies syncope, Denies irregular heart rhythm and Denies dyspnea Resp Denies chest congestion, Denies cough and Denies dyspnea GI Denies abdominal pain, Denies change in stool character, Denies nausea and Denies vomiting Musc Denies deformity and Denies joint swelling Neuro Denies syncope and Denies headache(s) Physical exam (Primary Care) Vital Signs: Last Vital Signs Temp 97.3 F 08/15/24 10:28 Pulse 72 08/15/24 10:28 BP 124/68 08/15/24 10:28 Pulse Ox 97 08/15/24 10:28 Oxygen Delivery Method Room Air 08/15/24 10:28 BMI result Body Mass Index 26.7 Tobacco/Smoking Status: Tobacco use Status Tobacco use date assessed 08/15/24 08/15/24 10:32 Patient Tobacco Use Status Former Tobacco user 08/15/24 10:32 Tobacco use type Cigarette 08/15/24 10:32 e-Cigarette/Vaping Use Never Used 08/15/24 10:32 PHQ-9: PHQ-9 Score PHQ-9: Total score 0 08/15/24 10:32 Depression Screening Interpretation: Negative Thrive Assessment: Date of Thrive Assessment Date Thrive assessed 08/15/24 08/15/24 10:32 Currently or been in a relationship where the following occur: No concerns reported Const General: cooperative, comfortable, no acute distress and alert Neck Neck: Yes no lymphadenopathy Thyroid: Thyroid normal Resp Effort & Inspection: normal respiratory effort Auscultation: clear to auscultation bilaterally Percussion: percussion normal Cardio Jugular venous distension: no JVD Palpation: normal PMI Rate: regular rate Rhythm: regular rhythm Heart sounds: S1 normal heart sound present and S2 normal heart sound present GI Inspection: Yes normal to inspection Palpation (GI): No hepatosplenomegaly present Skin General skin exam: no rashes or lesions noted Extrem General: Yes no clubbing, cyanosis or edema Coding Level of Care Code Est Pt Level 3 (41088) Diagnoses Hypertension I10 Assessment & Plan Assessment & Plan (1) Hypertension: Code(s): I10 - Essential (primary) hypertension Category: Medical Plan: stable; same rx
[2024-08-15 10:28] VITALS: BP 124/68; PULSE 72; TEMP 36.3; O2SAT 97; BMI 26.7
--- OUTSIDE RECORDS SUMMARY | 2024-08-15 12:12 | XMS_ITS ---
Author Organization [facility] Address [address] [place] [address] Care Team Providers Care Auto Electrical Technician Name Role Phone Foster Escobar MD Primary Care Provider Valariea Jonny Jain [phone] REASON FOR VISIT B12 deficiency Medications Medication SIG (Take, Route, Frequency, Duration) Notes Start Date End Date Status Lisinopril 20 MG 1 tablet Orally Once a day Active Omeprazole 40 MG TAKE 1 CAPSULE BY [facility] EVERY MORNING for 30 Active Suprep Bowel Prep 1 kit as directed Oral ly as directed for 1 dose 06/14/2014 Not-Taking Encounters Encounter Location Date Provider Diagnosis [facility] [address] [place] [address] 08/15/2024 Jonny Shah 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 Assessments Encounter Date Diagnosis (ICD Code) Assessment Notes Treatment Notes Treatment Clinical Notes Section Notes 08/15/2024 Deficiency of other specified B group vitamins (ICD-10 - E53.8) Plan Of Treatment No Information Medications Administered Medication Instructions Date of Administration Dosage Notes B-12 08/15/2024 1000 mL Progress Notes * DYLAN GREENE SrDOB:12/1949 (74 yo M)Acc No.[id number]:08/15/2024 SHOT Patient:?DYLAN GREENE S r Provider:?Jonny Shah MD :1950???Age:74 Y???Sex:Male Castro e:08/15/2024 Address:[address] [id number] Pcp:Foster Escobar MD Subjective: * Chief Complaints: * ???1. B12 deficiency. * Medical History:? * Medications:?Taking Lisinopr il 20 MG Tablet 1 tablet Orally Once a day , Taking Omeprazole 40 MG Capsule Delayed Release TAKE 1 CAPSULE BY MOUTH EVERY MORNING , Not-Taking/PRN Suprep Bowel Prep 1 kit Solution as directed Orally as directed Objective: * Vitals:? Assessment: * Assessment: 1.?Deficiency of other speci fied B group vitamins - E53.8 (Primary)??? Plan: * Treatment: * Therapeutic Injections:? B-12 : 1000 mL (Dose No:1) (Route: Intramuscular) given by Jessica Jacobo on left arm intramuscular * Procedure Codes:?J3420 INJ V IT B-12 CYNOCOBLMN TO 1000 MCG, [address]99 THER/PROPH/DIAG INJ, SC/IM, J3420 INJ VIT B-12 CYNOCOBLMN TO 1000 MCG, [address] THER/PROPH/DIAG INJ, SC/IM * * Sign off status: Completed true * Provider:?Jonny Shah MD Date:? 025 Generated for Maritza shrestha/Laury/Jeredsmitting on:?08/15/2024 12:11 PM EDT
--- OUTSIDE RECORDS SUMMARY | 2024-08-15 12:12 | XMS_ITS ---
Author Organization [facility] Address [address] [place] [address] Care Team Providers Care Manager Storage Name Role Phone Foster Escobar MD Primary Care Provider UnavailJonny Encinas [phone] Encounters Encounter Location Date Provider Diagnosis [facility] [address] [place] [address] 08/15/2024 Jonny Shah Plan Of Treatment No Information Progress Notes * DYLAN GREENE SrDOB:12/1949 (74 yo M)Acc No.[id number]:08/15/2024 Patient:?DYLAN GREENE S r :1950???Age:74 Y???Sex:Male Address:[address] [place] [address] * * Date:?
--- OUTSIDE RECORDS SUMMARY | 2024-08-15 12:12 | XMS_ITS ---
Author Organization [facility] Address [address] [place] [address] Care Team Providers Care Pediatric Acute Care Unit Nurse Name Role Phone Foster Escobar MD Primary Care Provider Jonny Ren [phone] REASON FOR VISIT B12 Medications Medication SIG (Take, Route, Frequency, Duration) Notes Start Date End Date Status Lisinopril 20 MG 1 tablet Orally Once a day Active Suprep Bowel Prep 1 kit as directed Oral ly as directed for 1 dose 06/14/2014 Not-Taking Omeprazole 40 MG TAKE 1 CAPSULE BY [facility] EVERY MORNING for 30 Active Encounters Encounter Location Date Provider Diagnosis [facility] [address] [place], [place] [address] [place] [address] 05/15/2024 Jonny Shah Vitamin B 12 deficiency E53.8 Assessments Encounter Date Diagnosis (ICD Code) Assessment Notes Treatment Notes Treatment Clinical Notes Section Notes 05/15/2024 Vitamin B 12 deficiency (ICD-10 - E53.8) Plan Of Treatment No Information Medications Administered Medication Instructions Date of Administration Dosage Notes B12 05/15/2024 1000 mL Progress Notes * DYLAN GREENE SrDOB:12/1949 (74 yo M)Acc No.[id number]:05/15/2024 SHOT Patient:?DYLAN GREENE Provider:?Jonny Shah MD :1950???Age:74 Y???Sex:Male Castro e:05/15/2024 Address:[address] [id number] Pcp:Foster Escobar MD Subjective: * Chief Complaints: * ???1. B12. * Medical History:? * Medications:?Taking Lisinopr il 20 MG Tablet 1 tablet Orally Once a day, Taking Omeprazole 40 MG Capsule Delayed Release TAKE 1 CAPSULE BY MOUTH EVERY MORNING , Not-Taking/PRN Suprep Bowel Prep 1 kit Solution as directed Orally as directed Objective: Assessment: * Assessment: 1.?Vitamin B 12 deficiency - E53.8? Plan: * Treatment: * Therapeutic Injections:? B12 : 1000 mL (Dose No:1) (Route: Intramuscular) given by Dimple Pena on left arm intramuscular * Procedure Codes:?J3420 INJ V IT B-12 CYNOCOBLMN TO 1000 MCG, [address] THER/PROPH/DIAG INJ, SC/IM, J3420 INJ VIT B-12 CYNOCOBLMN TO 1000 MCG, [address]64 THER/PROPH/DIAG INJ, SC/IM * * Sign off status: Completed true * Provider:?Jonny Shah MD Date:? 024 Generated for Maritza shrestha/Laury/Lilliana on:?08/15/2024 12:11 PM EDT
== END 2024-08-15 10:46 | disposition home or self-care (01) ==
LOC: HO.HMCH 10:19
PROVIDERS: PCP Internal Medicine; Visit Provider Internal Medicine
DX: I10 Essential (primary) hypertension (principal)

== ENCOUNTER 2024-11-15 09:51 | Outpatient (AMB) | payer OTHER, SELFPAY ==
[2024-11-15 10:16] VITALS: BP 114/68; PULSE 75; RESP 18; TEMP 37.3; O2SAT 98; BMI 25.2
--- NOTE | 2024-11-15 10:16 | MHC.PC.OV ---
Vital Signs 11/15/24 10:16 Height 5 ft 7 in Weight 161 lb BMI 25.2 BP 114/68 Blood Pressure Location Lt brachial Position Sitting Respiration 18 Pulse 75 Pulse Source Pulse Oximeter Temp 99.1 F Temp Source Oral Pulse Oximetry (%) 98 Oxygen Delivery Method Room Air Intake Visit Reasons: Transfer from [address] f/ Tower Watchman Required: No Accompanied by: Self / Same As Patient Allergies No Known Allergies Allergy (Verified 11/15/24 10:27) Medication List - Last Reconciled 11/15/24 by RAY Smith lisinopril 20 mg PO DAILY omeprazole 40 mg PO QAM Tobacco use date assessed: 11/15/24 Fall risk assessment: No Falls in past year Last assessed Fall Risk: 11/15/24 Dental Screening Dental Screen Date: 11/15/24 Did you have a dental visit in the last 12 months?: No Did you have a dental problem in the last 6 months where you did not have access to dental care?: No Was dental information given to patient?: Patient has dentist HPI Transfer from [address] f/ HPI Details Patient is a 74-year-old male presenting for three-month follow up and to transition care from Dr. Escobar who retired Medical history significant for HTN, BPH, chronic GERD, remote history of melanoma No recent labs to review with patient, per chart review, the patient noted to be slightly anemic in the past-improved on his last blood work Reports that he used to drink large amounts of alcohol in the past but now only drinks once a month if that much htn: blood pressure is within normal limits encouraged a low salt-diet current treatment of lisinopril 20 mg daily Chronic gerd: reports he is not getting heartburn with the medication that he is taking currently on omeprazole 40 mg daily BPH with the lower urinary symptoms: He is seeing [facility] for this, saw them last month and was told that he is doing fine. He is currently not on any treatment for this Initially, he was referred to them by Dr. Escobar for frequent urination He is going an average of 2 times a night reports drinking a large cup of coffee in the mornings and 2 or 3 large cup of teas he does not drinks water at all, reports that there is no reason to drink water because coffee and tea is made of water Denies chest pain, sob, heart palpitation reports intermittent dizziness with lifting heavy objects or getting up from a sitting position, but resolves quickly denies abdominal pain/no change in bowel habit ongoing urinary urinary frequency that he describes as on and off Melanoma: when he was in his 40s, so roughly 30 years ago, he had this lesion at right upper quadrant that was surgically removed, biopsy came back positive for stage one. No skin lesion noted on exam. He does not follow up with any applications sales consultant, will doing regular skin exam [facility] Medical History (Updated 11/15/24 @ 11:14 by RAY Smith) BPH with elevated PSA and lower urinary tract symptoms Chronic GERD Melanoma Kidney stone Hypertension Surgical History History of cholecystectomy Family History Father Cancer Mother Past heart attack Social History Housing: House Alcohol intake: current Alcohol intake frequency: holidays/special occasions only Patient Tobacco Use Status: Former Tobacco user Tobacco use type: Cigarette e-Cigarette/Vaping Use: Never Used Second Hand Smoke Exposure: Yes service: No Current occupational status: employed 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 1. Little interest or pleasure in doing things: not at all 2. Feeling down, depressed, or hopeless: not at all 3. Trouble falling or staying asleep, or sleeping too much: not at all 4. Feeling tired or having little energy: not at all 5. Poor appetite or overeating: not at all 6. Feeling bad about yourself - or that you are a failure or have let yourself or your family down: not at all 7. Trouble concentrating on things, such as reading the newspaper or watching television: not at all 8. Moving or speaking so slowly that other people could have noticed. Or the opposite - being so fidgety or restless that you have been moving around a lot more than usual: not at all 9. Thoughts that you would be better off or of hurting yourself in some way: not at all Total score: 0 Depression Screening Interpretation: Negative Depression Screening Done: Yes 84120 - PHQ-9 Billing: Yes Source: Developed by Drs. Jonny Goldstein, Ines Baez, Aime Gay and colleagues, with an educational ariel from [employer]. Thrive Questionnaire Date Thrive assessed: 11/15/24 I am a: Patient What is your living situation today?: I have a steady place to live Within the past 12 months, did the food you bought not last and you didn't have the money to get more?: Never true Within the past 12 months, did you worry whether your food would run out before you got money to buy more?: Never true Do you have trouble paying for medicines?: No Do you have trouble getting transportation to medical appointments?: No Do you have trouble paying your heating and electricity bill?: No Do you have trouble taking care of your child, family member or friend?: No Do you have trouble with day-to-day activities such as bathing, preparing meals, shopping, managing finances, etc.?: No Are you currently unemployed and looking for a job?: No Are you interested in more education?: No Please select the resources that you would like help with: None Currently or been in a relationship where the following occur: No concerns reported THRIVE Score: 0 AUDIT C Alcohol Use Questionnaire (AUDIT-C) 1. How often do you have a drink containing alcohol?: Monthly or less 2. How many drinks containing alcohol do you have on a typical day when you are drinking?: 1 or 2 3. How often do you have six or more drinks on one occasion?: Never Total Score: 1 Score Reviewed/Action Taken: No ZAIDA-7 AMB Questionnaire ZAIDA-7 Date ZAIDA - 7 assessed: 11/15/24 Feeling nervous, anxious, or on edge: 0 = Not at all Not being able to stop or control worryin = Not at all Worrying too much about different things: 0 = Not at all Trouble relaxin = Not at all Being so restless that it is hard to sit still: 0 = Not at all Becoming easily annoyed or irritable: 0 = Not at all Feeling afraid as if something awful might happen: 0 = Not at all Total ZAIDA-7 score (0-4 normal; 5-9 mild; 10-14 moderate; 15-21 severe): 0 Source: Developed by Drs. Jonny Goldstein, Ines Baez, Aime Gay and colleagues, with an educational ariel from [employer]. ZAIDA-7 Assessment Billing ZAIDA-7 Assessment Tool: ZAIDA-7 Assessment 93688 Review of Systems Const Denies headache(s) Eyes Denies loss of vision ENT Denies vertigo, Reports dizziness (When lifting heavy objects or getting up from a sitting position), Denies headache(s) and Denies sore throat Card Denies chest pain, Denies leg edema and Denies lightheadedness Resp Denies cough, Denies hemoptysis and Denies wheezing GI Denies abdominal pain, Denies melena, Denies constipation, Denies diarrhea and Denies vomiting Denies dysuria, Reports urinary frequency (On and off) and Denies urinary urgency Musc Denies arthralgias, Denies joint swelling, Denies numbness and Denies tingling Neuro Denies Abnormal speech present, Denies behavioral changes, Denies vertigo, Reports dizziness (When lifting heavy objects or getting up from a sitting position), Denies headache(s), Denies loss of vision, Denies memory loss, Denies numbness and Denies tingling Psych Denies anxiety, Denies behavioral changes, Denies depression, Denies memory loss and Denies panic attacks Ever/Lymph Denies easy bleeding and Denies easy bruising Aller/Immun Denies wheezing Physical exam (Primary Care) Vital Signs: Last Vital Signs Temp 99.1 F 11/15/24 10:16 Pulse 75 11/15/24 10:16 Resp 18 11/15/24 10:16 BP 114/68 11/15/24 10:16 Pulse Ox 98 11/15/24 10:16 Oxygen Delivery Method Room Air 11/15/24 10:16 BMI result Body Mass Index 25.2 Tobacco/Smoking Status: Tobacco use Status Tobacco use date assessed 11/15/24 11/15/24 10:22 Patient Tobacco Use Status Former Tobacco user 11/15/24 10:22 Tobacco use type Cigarette 11/15/24 10:22 e-Cigarette/Vaping Use Never Used 11/15/24 10:22 PHQ-9: PHQ-9 Score PHQ-9: Total score 0 11/15/24 10:22 Depression Screening Interpretation: Negative Thrive Assessment: Date of Thrive Assessment Date Thrive assessed 11/15/24 11/15/24 10:22 Currently or been in a relationship where the following occur: No concerns reported Const General: healthy appearing, no acute distress, alert and awake Nutritional Appearance: well nourished Orientation/consciousness: oriented to person, oriented to place and oriented to time HENMT Ears: external ears normal General nose exam: Normal external nose present Eyes Conjunctivae: conjunctivae normal Sclerae: sclerae normal Pupils: Equal, round and reactive pupils present Neck Neck: Yes no lymphadenopathy and Yes no JVD Thyroid: Thyroid normal Carotids: no bruits Resp Effort & Inspection: normal respiratory effort and not tachypneic Auscultation: no crackles, no rales, no rhonchi and no wheezes Cardio Rate: regular rate Rhythm: regular rhythm Heart sounds: no murmurs and normal S1 and S2 GI Palpation (GI): Soft to palpation, nontender, no hepatomegaly and no splenomegaly Auscultation: normal bowel sounds Skin General skin exam: no rashes or lesions noted and dry skin Neuro General: oriented to person, oriented to place and oriented to time Cranial nerves: Yes Equal, round and reactive pupils present Speech: No Abnormal speech present Gait exam (Neuro): Normal gait present Motor exam (neuro): no tremor noted Extrem Right upper extremity: full ROM Left upper extremity: full ROM Right lower extremity: full ROM; no edema Left lower extremity: full ROM; no edema Psych Mental Status: mental status grossly normal Speech and movement: Normal speech and movement present Affect: normal affect Attitude: cooperative Thought process: Normal thought process present Coding Level of Care Code Est Pt Level 4 (70312) Diagnoses Dizzy R42 BPH with elevated PSA and lower urinary tract symptoms N40.1; R97.20 Chronic GERD K21.9 Hypertension, unspecified type I10 Hypertension type: unspecified Malignant melanoma, unspecified site C43.9 Melanoma location: unspecified site Additional Codes ZAIDA-7 Assessment Billing - ZAIDA-7 Assessment Tool: ZAIDA-7 Assessment 08928 ([id number]) PHQ-9 - 97415 - PHQ-9 Billing: Yes ([id number]) Time Spent (min) 37 Assessment & Plan Assessment & Plan (1) Dizzy: Code(s): R42 - Dizziness and giddiness Category: Medical Plan: Suspect that this is due to dehydration. The patient is only drinking coffee and tea and occasional alcohol. Encouraged the patient to start drinking water at least 6 regular bottles We will continue to monitor Patient to contact office if his symptoms are worsening or not resolving (2) BPH with elevated PSA and lower urinary tract symptoms: Code(s): N40.1 - Benign prostatic hyperplasia with lower urinary tract symptoms; R97.20 - Elevated prostate specific antigen [PSA] Category: Medical Plan: Ongoing, but reports that this are stable and not bothersome Follow up with Urology as scheduled (3) Chronic GERD: Code(s): K21.9 - Gastro-esophageal reflux disease without esophagitis Category: Medical Plan: Do not eat meals or drink carbonated beverages within 3 hr of bedtime Decrease the amount of fried, fatty, and spicy foods to decrease gastric acid production Raise the head of the bed using 4 to 6-inch blocks, especially if nocturnal symptoms are present Lose weight if indicated; avoid tight-fitting clothing, especially around the waist Avoid foods that relax the Lower esophageal sphincter (chocolate, peppermint, high-fat foods etc.,) Continue omeprazole 40 mg daily (4) Hypertension: Code(s): I10 - Essential (primary) hypertension Category: Medical Qualifiers: Hypertension type: unspecified Qualified Code(s): I10 - Essential (primary) hypertension Plan: Encouraged DASH diet and activity as tolerated-goal systolic is less than 130 mmhg Refrain from alcohol use and if you smoke, smoking cessation is strongly advised Continue lisinopril 20 mg daily (5) Melanoma: Code(s): C43.9 - Malignant melanoma of skin, unspecified Category: Medical Qualifiers: Melanoma location: unspecified site Qualified Code(s): C43.9 - Malignant melanoma of skin, unspecified Plan: Normal skin exam on evaluation We will continue to monitor Orders: Orders Comprehensive [place]. Panel Fast 3 Months I10 - Essential (primary) hypertension, K21.9 - Gastro-esophageal reflux disease without esophagitis, N40.1 - Benign prostatic hyperplasia with lower urinary tract symptoms, R97.20 - Elevated prostate specific antigen [PSA] Lipid Panel 3 Months I10 - Essential (primary) hypertension, K21.9 - Gastro-esophageal reflux disease without esophagitis, N40.1 - Benign prostatic hyperplasia with lower urinary tract symptoms, R97.20 - Elevated prostate specific antigen [PSA] Complete Blood Count Auto Diff 3 Months I10 - Essential (primary) hypertension, K21.9 - Gastro-esophageal reflux disease without esophagitis, N40.1 - Benign prostatic hyperplasia with lower urinary tract symptoms, R97.20 - Elevated prostate specific antigen [PSA] TSH reflex Free T4 3 Months I10 - Essential (primary) hypertension, K21.9 - Gastro-esophageal reflux disease without esophagitis, N40.1 - Benign prostatic hyperplasia with lower urinary tract symptoms, R97.20 - Elevated prostate specific antigen [PSA] UA CC w/rflx Micro + Cult 3 Months I10 - Essential (primary) hypertension, K21.9 - Gastro-esophageal reflux disease without esophagitis, N40.1 - Benign prostatic hyperplasia with lower urinary tract symptoms, R97.20 - Elevated prostate specific antigen [PSA] Vitamin D 25-OH Total 3 Months I10 - Essential (primary) hypertension, K21.9 - Gastro-esophageal reflux disease without esophagitis, N40.1 - Benign prostatic hyperplasia with lower urinary tract symptoms, R97.20 - Elevated prostate specific antigen [PSA] Vitamin B12 and Folate 3 Months I10 - Essential (primary) hypertension, K21.9 - Gastro-esophageal reflux disease without esophagitis, N40.1 - Benign prostatic hyperplasia with lower urinary tract symptoms, R97.20 - Elevated prostate specific antigen [PSA]
--- OUTSIDE RECORDS SUMMARY | 2024-11-15 10:55 | XMS_ITS ---
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 Name Role Phone Foster Escobar MD Primary Care Provider Unavaila Jonny Jain Unavailable [phone] REASON FOR VISIT VITAMIN B12 DEFICIENCY Medications Medication SIG (Take, Route, Frequency, Duration) Notes Start Date End Date Status Omeprazole 40 MG TAKE 1 CAPSULE BY [facility] EVERY MORNING for 30 Active Lisinopril 20 MG 1 tablet Orally Once a day Active Suprep Bowel Prep 1 kit as directed Oral ly as directed for 1 dose 06/14/2014 Not-Taking Encounters Encounter Location Date Provider Diagnosis [facility] [address] [place] [id number] 10/10/2024 Jonny Shah 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 Assessments Encounter Date Diagnosis (ICD Code) Assessment Notes Treatment Notes Treatment Clinical Notes Section Notes 10/10/2024 Deficiency of other specified B group vitamins (ICD-10 - E53.8) Plan Of Treatment No Information Medications Administered Medication Instructions Date of Administration Dosage Notes B-12 10/10/2024 1000 ug Progress Notes * DYLAN GREENE SrDOB:12/1949 (74 yo M)Acc No.[id number]:10/10/2024 SHOT Patient:?DYLAN GREENE S r Provider:?Jonny Shah MD :1950???Age:74 Y???Sex:Male Castro e:10/10/2024 Address:[address] [id number] Pcp:Foster Escobar MD Subjective: * Chief Complaints: * ???1. VITAMIN B12 DEFICIENCY . * Medical History:? * Medications:?Taking Lisinopr il [...] Treatment: * Therapeutic Injections:? B-12 : 1000 mcg (Dose No:1) (Route: Intramuscular) given by Jessica Jacobo on left arm intramuscular * Procedure Codes:?J3420 INJ V IT B-12 CYNOCOBLMN TO 1000 MCG, [address] THER/PROPH/DIAG INJ, SC/IM * * Sign off status: Completed true * Provider:?Jonny Shah MD Date:? 025 Generated for Chadi fady/Laury/eTransmitting on:?11/15/2024 10:54 AM EDT
== END 2024-11-15 11:00 | disposition home or self-care (01) ==
DX: I10 Essential (primary) hypertension (principal); C43.9 Malignant melanoma of skin, unspecified; R42 Dizziness and giddiness; N40.1 Benign prostatic hyperplasia with lower urinary tract symptoms; R97.20 Elevated prostate specific antigen [PSA]; K21.9 Gastro-esophageal reflux disease without esophagitis

== ENCOUNTER → 2024-11-15 09:51 | Outpatient (BNVA) | payer OTHER, SELFPAY | PROVIDERS: PCP Internal Medicine | DX: I10 Essential (primary) hypertension (principal); K21.9 Gastro-esophageal reflux disease without esophagitis; N40.1 Benign prostatic hyperplasia with lower urinary tract symptoms; R35.0 Frequency of micturition; R35.1 Nocturia; R42 Dizziness and giddiness; R97.20 Elevated prostate specific antigen [PSA]; Z85.820 Personal history of malignant melanoma of skin | CPT/HCPCS: 96127 ==

== ENCOUNTER 2025-02-21 10:20 | Outpatient (AMB) | payer OTHER, SELFPAY ==
[2025-02-21 10:22] VITALS: BP 138/68; PULSE 57; RESP 18; TEMP 36.3; O2SAT 94; BMI 24.9
--- NOTE | 2025-02-21 10:22 | MHC.PC.OV ---
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 Required: No Accompanied by: Self / Same As Patient Allergies No Known Allergies Allergy (Verified 02/21/25 10:36) Medication List - Last Reconciled 02/21/25 by RAY Smith lisinopril 20 mg PO DAILY omeprazole 40 mg PO QAM Tobacco use date assessed: 02/21/25 Fall risk assessment: No Falls in past year Last assessed Fall Risk: 02/21/25 Dental Screening Dental Screen Date: 02/21/25 Did you have a dental visit in the last 12 months?: No Did you have a dental problem in the last 6 months where you did not have access to dental care?: No Was dental information given to patient?: No HPI 3 mnth f/u HPI Details The patient is a 75-year-old male presenting for a follow-up visit to discuss laboratory results and overall health maintenance. However, the patient did not complete ordered blood work for this appointment, as yet. The patient has a history of macrocytic anemia, likely related to chronic alcohol use affecting vitamin absorption, specifically B12 and folate. The anemia was identified in past lab results, showing larger than normal red blood cells, a condition known as macrocytosis. The patient reports a history of dehydration, which has been addressed by increasing water intake as advised. He acknowledges a past lifestyle of frequent alcohol consumption, which contributed to dehydration and possibly elevated creatinine levels. The patient has been advised to undergo further laboratory testing to monitor creatinine levels, which were previously elevated, potentially due to inadequate hydration. 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 Cognitive needs: No Hearing needs: No Vision needs: Yes (glasses) Questionnaire Thrive Questionnaire Date Thrive assessed: 11/11/24 I am a: Patient What is your living situation today?: I have a steady place to live Within the past 12 months, did the food you bought not last and you didn't have the money to get more?: Never true Within the past 12 months, did you worry whether your food would run out before you got money to buy more?: Never true Do you have trouble paying for medicines?: No Do you have trouble getting transportation to medical appointments?: No Do you have trouble paying your heating and electricity bill?: No Do you have trouble taking care of your child, family member or friend?: No Do you have trouble with day-to-day activities such as bathing, preparing meals, shopping, managing finances, etc.?: No Are you currently unemployed and looking for a job?: No Are you interested in more education?: No Please select the resources that you would like help with: None Currently or been in a relationship where the following occur: No concerns reported THRIVE Score: 0 ZAIDA-7 AMB Questionnaire ZAIDA-7 Date ZAIDA - 7 assessed: 11/15/24 Source: Developed by Drs. Jonny Goldstein, Ines Baez, Aime Gay and colleagues, with an educational ariel from [employer]. Review of Systems Const Denies body aches, Denies chills, Denies fever(s), Denies headache(s) and Denies poor appetite Eyes Reports no additional complaints ENT Denies dysphagia, Denies dizziness, Denies headache(s) and Denies odynophagia Card Denies chest pain, Denies syncope, Denies edema, Denies irregular heart rhythm, Denies lightheadedness and Denies dyspnea Resp Denies cough and Denies dyspnea GI Denies abdominal pain, Denies constipation, Denies dysphagia, Denies diarrhea, Denies nausea, Denies odynophagia and Denies vomiting Reports no additional complaints Musc Reports no additional complaints and Denies abnormal gait Skin/Breast Reports system reviewed and no additional complaints, except as documented Neuro Denies abnormal gait, Denies dizziness, Denies syncope and Denies headache(s) Psych Reports no additional complaints Physical exam (Primary Care) Vital Signs: Last Vital Signs Temp 97.3 F 02/21/25 10:22 Pulse 57 02/21/25 10:22 Resp 18 02/21/25 10:22 BP 138/68 02/21/25 10:22 Pulse Ox 94 02/21/25 10:22 Oxygen Delivery Method Room Air 02/21/25 10:22 BMI result Body Mass Index 24.9 Tobacco/Smoking Status: Tobacco use Status Tobacco use date assessed 02/21/25 02/21/25 10:29 Patient Tobacco Use Status Former Tobacco user 02/21/25 10:29 Tobacco use type Cigarette 02/21/25 10:29 e-Cigarette/Vaping Use Never Used 02/21/25 10:29 Thrive Assessment: Date of Thrive Assessment Date Thrive assessed 11/11/24 02/21/25 10:29 Currently or been in a relationship where the following occur: No concerns reported Const General: cooperative, healthy appearing, comfortable and no acute distress Orientation/consciousness: patient oriented x3 HENMT Head: Yes normocephalic Ears: hearing grossly normal bilaterally General nose exam: Normal external nose present Eyes General: appearance normal, both eyes and all related structures Conjunctivae: conjunctivae normal Neck Neck: Yes full ROM and Yes no lymphadenopathy Resp Effort & Inspection: normal respiratory effort Auscultation: clear to auscultation bilaterally, no crackles, no rales, no rhonchi and no wheezes Cardio Rate: regular rate Rhythm: regular rhythm Skin General skin exam: no rashes or lesions noted Neuro General: patient oriented x3 Gait exam (Neuro): Normal gait present Extrem General: Yes normal to inspection, Yes full ROM and No edema Psych Affect: normal affect Attitude: cooperative Insight: Good insight present (Psych) Judgement: Good judgement present (Psych) Coding Level of Care Code Est Pt Level 3 (04381) Diagnoses Dizzy R42 BPH with elevated PSA and lower urinary tract symptoms N40.1; R97.20 Chronic GERD K21.9 Hypertension, unspecified type I10 Hypertension type: unspecified Time Spent (min) 31 Assessment & Plan Assessment & Plan (1) Dizzy: Code(s): R42 - Dizziness and giddiness Category: Medical Plan: Patient complained of dizziness on his previous visit. It was suspected that the patient was not drinking enough fluids and an increased of fluid hydration was recommended then. The patient is denying dizziness today in office, he reports that he has been making an effort to drink more water. We will continue to monitor. (2) BPH with elevated PSA and lower urinary tract symptoms: Code(s): N40.1 - Benign prostatic hyperplasia with lower urinary tract symptoms; R97.20 - Elevated prostate specific antigen [PSA] Category: Medical Plan: Ongoing, but reports that this is stable and not bothersome Follow up with Urology as scheduled (3) Chronic GERD: Code(s): K21.9 - Gastro-esophageal reflux disease without esophagitis Category: Medical Plan: Do not eat meals or drink carbonated beverages within 3 hr of bedtime Decrease the amount of fried, fatty, and spicy foods to decrease gastric acid production Raise the head of the bed using 4 to 6-inch blocks, especially if nocturnal symptoms are present Lose weight if indicated; avoid tight-fitting clothing, especially around the waist Avoid foods that relax the Lower esophageal sphincter (chocolate, peppermint, high-fat foods etc.,) Continue omeprazole 40 mg daily (4) Hypertension: Code(s): I10 - Essential (primary) hypertension Category: Medical Qualifiers: Hypertension type: unspecified Qualified Code(s): I10 - Essential (primary) hypertension Plan: Blood pressure 138/68-systolic goal less than 140 mmhg Encouraged DASH diet and activity as tolerated Refrain from alcohol use and if you smoke, smoking cessation is strongly advised Continue lisinopril 20 mg daily
--- OUTSIDE RECORDS SUMMARY | 2025-02-21 12:40 | XMS_ITS | Patient Health Record ---
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 Name Role Phone Foster Escobar MD Primary Care Provider Jonny Ren [phone] Reason For Referral No Information Medications Medication SIG (Take, Route, Frequency, Duration) Notes Start Date End Date Status Suprep Bowel Prep 1 kit as directed Oral ly as directed for 1 dose 06/14/2014 Not-Taking Lisinopril 20 MG 1 tablet Orally Once a day Active Omeprazole 40 MG TAKE 1 CAPSULE BY [facility] EVERY MORNING for 30 Active Immunizations Vaccine Route Administration Date Status Comme nts Influenza Unknown 01/05/2019 Administered Problems Problem Type SNOMED Code ICD Code Onset Dates Problem Status W/U Status Risk Notes Problem Screening for malignant neoplasm of colon (757826069) Encounter for screening for malignant neoplasm of colon (Z12.11) Active confirmed Problem 892365633 History of adenomatous polyp of colon (Z86.010) Active confirmed Problem 79793416 Deficiency of other specified B group vitamins (E53.8) Active confirmed Problem 292499291 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) Active confirmed Problem 608660650 Vitamin B 12 deficiency (E53.8) Active confirmed Problem 234733148 History of anemia (Z86.2) Active confirmed Encounters Encounter Location Date Provider Diagnosis [facility] [address] [place] [phone] 03/13/2024 Jonny Shah [facility] [address] [place] [phone] 05/15/2024 Jonny Shah Vitamin B 12 deficiency E53.8 [facility] [address] [place] [phone] 08/15/2024 Jonny Shah 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 [facility] [address] [place] [phone] 09/14/2024 Jonny Shah 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 [facility] [address] [place] [phone] 10/10/2024 Jonny Shah 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 [facility] [address] [place] [phone] 11/15/2024 Jonny Shah Vitamin B 12 deficiency E53.8 [facility] [address] [place] [phone] 01/05/2025 Jonny Shah [facility] [address] [place] [phone] 03/13/2024 Jonny Shah [facility] [address] [place] [phone] 08/15/2024 Jonny Shah [facility] [address] [place] [phone] 09/18/2024 Jonny Shah Assessments Encounter Date Diagnosis (ICD Code) Assessment Notes Treatment Notes Treatment Clinical Notes Section Notes 05/15/2024 Vitamin B 12 deficiency (ICD-10 - E53.8) 08/15/2024 Deficiency of other specified B group vitamins (ICD-10 - E53.8) 09/14/2024 Deficiency of other specified B group vitamins (ICD-10 - E53.8) 10/10/2024 Deficiency of other specified B group vitamins (ICD-10 - E53.8) 11/15/2024 Vitamin B 12 deficiency (ICD-10 - E53.8) Plan Of Treatment Pending Test Test Name Order Date IRON + IBC (FE) 08/18/2014 IRON + IBC (FE) 10/05/2019 FERRITIN 08/18/2014 FERRITIN 10/05/2019 VITAMIN B12 AND FOLATE 08/18/2014 VITAMIN B12 AND FOLATE 10/05/2019 CBC w DIFF 10/05/2019 CBC w DIFF 08/18/2014 Future Test Test Name Order Date UPPER GI ENDOSCOPY 06/14/2014 COLONOSCOPY 06/14/2014 UPPER GI ENDOSCOPY 10/05/2019 COLONOSCOPY 10/05/2019 Next Appt Details Provider Name:Jonny Shah , 05/22/2025 10:50:00 AM, [address] [place] [address], [address], [place], [address], Insurance Providers Payer Name Payer Address Payer Phone Subscriber Number Group Number Insured Name Patient Relationship to Insured Coverage Start Date Coverage End Date [facility] [id number] [place] [address] [id number] DYLAN GREENE Self - patient is the insured Medications Administered Medication Instructions Date of Administration Dosage Notes B-12 12/27/2014 1000 ug B-12 02/19/2015 1000 ug B-12 04/23/2015 1000 ug B-12 06/21/2015 1000 ug B-12 10/30/2015 1000 ug B-12 02/13/2016 1000 ug B-12 04/15/2016 1000 ug B-12 06/25/2016 1000 ug B-12 08/20/2016 1000 ug B-12 10/23/2016 1000 ug B-12 12/22/2016 1000 ug B-12 02/23/2017 1000 ug B-12 03/23/2017 1000 ug B-12 04/27/2017 1000 ug B-12 05/27/2017 1000 ug B-12 08/24/2017 1000 ug B-12 09/21/2017 1000 ug B-12 12/20/2017 1000 ug B-12 01/12/2018 1000 ug B-12 02/15/2018 1000 ug B-12 03/22/2018 1000 ug B-12 04/19/2018 1000 ug B-12 05/24/2018 1000 ug B-12 06/21/2018 1000 ug B-12 08/24/2018 1000 ug B-12 02/02/2020 1000 ug B-12 04/09/2020 1000 ug B-12 11/18/2020 1000 ug B-12 02/05/2021 1000 ug B-12 03/14/2021 1000 ug B-12 04/14/2021 1000 ug B-12 05/14/2021 1000 ug B-12 07/30/2021 1000 ug B-12 08/08/2021 1000 ug B-12 10/13/2021 1000 ug B-12 12/10/2021 1000 ug B-12 03/18/2022 1000 ug B-12 04/17/2022 1000 ug B-12 08/17/2022 1000 ug B-12 10/20/2022 1000 ug B-12 01/14/2023 1000 ug B-12 05/18/2023 1000 ug B-12 06/16/2023 1000 ug B-12 07/16/2023 1000 ug B-12 08/12/2023 1000 ug B-12 10/08/2023 1000 ug B-12 11/09/2023 1000 ug B-12 08/15/2024 1000 mL B-12 09/14/2024 1000 mL B-12 10/10/2024 1000 ug B-12 11/15/2024 1000 mL B12 06/18/2014 1000 ug B12 06/27/2014 1000 ug B12 07/04/2014 1000 ug B12 09/03/2014 1000 ug B12 10/22/2014 1000 ug B12 06/29/2017 1000 ug B12 07/27/2017 1000 ug B12 10/19/2017 1000 ug B12 11/16/2017 1000 ug B12 07/19/2018 1000 ug B12 01/03/2020 1000 ug B12 03/07/2020 1000 ug B12 07/02/2020 1000 ug B12 08/02/2020 1000 ug B12 08/30/2020 1000 ug B12 10/02/2020 1000 ug B12 04/14/2021 1000 ug B12 06/16/2021 1000 ug B12 11/11/2021 1000 ug B12 01/12/2022 1000 ug B12 02/13/2022 1000 ug B12 05/15/2022 1000 ug B12 06/17/2022 1000 ug B12 07/15/2022 1000 ug B12 09/11/2022 1000 ug B12 03/09/2023 1000 ug B12 04/09/2023 1000 ug B12 given in l eft deltoid B12 12/15/2023 1000 ug B12 01/14/2024 1000 ug B12 05/15/2024 1000 mL B12 05/27/2017 1000 ug Medical (General) History Medical History History ICD Code Tubular adenomas removed in 2000, 2001, 2002, and 09/2010--had a neg. colonoscopy in 2005--the colonoscopy in 2000 had an approx. 2 cm rectal tubular adenoma with high grade dysplasia HTN GERD kidney stones Denies [place],DM,CVA,Lung disease,renal dise ase 2014--Anemia due to Iron-def iciency and B12 deficiency--underwent EGD and Colonoiscopy in 07/2014--colonoscopy revealed small tubular adenomas, sigmoid diverticulosis, and internal hemorrhoids; the upper endoscopy revealed a small hiatal hernia, tiny area of Bauer's esophagus without dysplasia, and normal duodenal biopsies B12 deficiency--he is receiv ing B12 shots every other month--he had positive intrinsic factor antibodies but negative antiparietal cell antibodies Surgical History Surgery Date(Month/Year) cholecystectomy [facility]
== END 2025-02-21 10:56 | disposition home or self-care (01) ==
LOC: HO.HMCH 10:21
DX: R42 Dizziness and giddiness (principal); N40.1 Benign prostatic hyperplasia with lower urinary tract symptoms; R97.20 Elevated prostate specific antigen [PSA]; K21.9 Gastro-esophageal reflux disease without esophagitis; I10 Essential (primary) hypertension

== ENCOUNTER 2025-02-27 10:21 | Outpatient (REF) | payer OTHER, SELFPAY ==
[2025-02-27 11:16] LABS: Hematocrit 40.3 % (42.0-52.0); Hemoglobin 13.3 g/dl (14.0-18.0); Imm Gran Abs Auto 0.01 X10*3/uL (0.00-0.03); Imm Gran Pct Auto 0.2 % (0.0-0.4); Lymphocytes Absolute Auto 1.0 X10*3/uL (1.2-4.9); Mean Corpuscular HGB Conc 33.0 g/dl (31.0-36.0); Mean Corpuscular Hemoglobin 30.5 pg (27.0-33.0); Mean Corpuscular Volume 92.4 fL (80.0-98.0); NRBC Abs Auto 0.000 X10*3/uL (0.0-0.012); NRBC Pct Auto 0.0 /100WBC (0.0-0.2); Platelet Count 198 X10*3/uL (160-400); Red Blood Count 4.36 X10*6/uL (4.60-5.80); White Blood Count 4.3 X10*3/uL (4.8-10.8)
[2025-02-27 11:40] LABS: Appearance Urine Clear; Glucose Urine UA Negative (Negative); PH 5.5 (5.0-9.0); Specific Gravity - Urine 1.025 (1.005-1.025)
[2025-02-27 12:15] LABS: Folate 7.1 ng/mL (> or = 4.0); Vitamin B12 471 pg/mL (200-900)
--- OUTSIDE RECORDS SUMMARY | 2025-02-27 12:36 | XMS_ITS | Patient Health Record ---
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 Name Role Phone Foster Escobar MD Primary Care Provider Jonny Ren [phone] Reason For Referral No Information Medications Medication SIG (Take, Route, Frequency, Duration) Notes Start Date End Date Status Suprep Bowel Prep 1 kit as directed Oral ly as directed for 1 dose 06/14/2014 Not-Taking Lisinopril 20 MG 1 tablet Orally Once a day Active Omeprazole 40 MG TAKE 1 CAPSULE BY [facility] EVERY MORNING for 30 Active Immunizations Vaccine Route Administration Date Status Comme nts Influenza Unknown 01/05/2019 Administered Problems Problem Type SNOMED Code ICD Code Onset Dates Problem Status W/U Status Risk Notes Problem Screening for malignant neoplasm of colon (160641076) Encounter for screening for malignant neoplasm of colon (Z12.11) Active confirmed Problem 657715466 History of adenomatous polyp of colon (Z86.010) Active confirmed Problem 58138714 Deficiency of other specified B group vitamins (E53.8) Active confirmed Problem 247964756 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) Active confirmed Problem 657183213 Vitamin B 12 deficiency (E53.8) Active confirmed Problem 657121962 History of anemia (Z86.2) Active confirmed Encounters Encounter Location Date Provider Diagnosis [facility] [address] [place] [phone] 03/13/2024 Jonny Shah [facility] [address] [place] [phone] 05/15/2024 Jonny Shah Vitamin B 12 deficiency E53.8 [facility] [address] [place] [phone] 08/15/2024 Jonny Shah 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 [facility] [address] [place] [phone] 09/14/2024 Jonny Shah 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 [facility] [address] [place] [phone] 10/10/2024 Jonny Shah 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 [facility] [address] [place] [phone] 11/15/2024 Jonny Shah Vitamin B 12 deficiency E53.8 [facility] [address] [place] [phone] 01/05/2025 Jonny Shah [facility] [address] [place] [phone] 03/13/2024 Jonny Shah [facility] [address] [place] [phone] 08/15/2024 Jonny Shah [facility] [address] [place] [phone] 09/18/2024 Jonny Shah Assessments Encounter Date Diagnosis [...] B12 AND FOLATE 10/05/2019 CBC w DIFF 08/18/2014 CBC w DIFF 10/05/2019 Future Test Test Name Order Date UPPER GI ENDOSCOPY 06/14/2014 COLONOSCOPY 06/14/2014 UPPER GI ENDOSCOPY 10/05/2019 COLONOSCOPY 10/05/2019 Next Appt Details Provider Name:Jonny Shah , 05/22/2025 10:50:00 AM, [address] [place] [address], [address], [place], [phone], Insurance Providers Payer Name Payer Address Payer Phone Subscriber Number Group Number Insured Name Patient Relationship to Insured Coverage Start Date Coverage End Date [facility] [id number] [place] [id number] DYLAN GREENE Self - patient is the [...] grade dysplasia HTN GERD kidney stones Denies [place],DM,CVA,Lung disease,renal dise ase 2014--Anemia due to Iron-def [...] Date(Month/Year) [facility]
[2025-02-27 12:59] LABS: Anion Gap 10 (12-20)
[2025-02-27 13:04] LABS: Alanine Aminotransferase 10 U/L (0-40); Albumin Level 4.2 g/dL (3.5-5.0); Alkaline Phosphatase 63 U/L (39-117); Aspartate Amino Transferase 23 U/L (5-37); Blood Urea Nitrogen 20 mg/dL (9-16); Calcium 8.5 mg/dL (8.4-10.2); Carbon Dioxide 27 mmol/L (22-29); Chloride 113 mmol/L (96-108); Cholesterol 187 mg/dL (<200); Estimated Glomerular Filt Rate 43; HDL Cholesterol 58 mg/dL (>40); Potassium 4.4 mmol/L (3.3-5.1); Sodium 146 mmol/L (135-145); Total Protein 6.7 g/dL (6.5-8.0); Triglycerides 58 mg/dL (<150)
== END 2025-02-27 10:22 | disposition home or self-care (01) ==
LOC: HO.LAB 10:21
DX: I10 Essential (primary) hypertension (principal); N40.1 Benign prostatic hyperplasia with lower urinary tract symptoms; K21.9 Gastro-esophageal reflux disease without esophagitis; R97.20 Elevated prostate specific antigen [PSA]
CPT/HCPCS: 36415; 80053; 80061; 81003; 82306; 82607; 82746; 84443; 85025